=== PATIENT | male | born 1965 | race Caucasian/White ===

== ENCOUNTER → 2023-10-02 | Outpatient (CLI) | payer OTHER | END | disposition home or self-care (01) | LOC: EDUNIT# 08-30 15:30 → SHCH 15:29 | PROVIDERS: ATTEND Internal Medicine | DX: R94.31 Abnormal electrocardiogram [ECG] [EKG] (principal); R06.02 Shortness of breath; R07.9 Chest pain, unspecified | CPT/HCPCS: 93306 ==

== ENCOUNTER → 2023-10-30 | Outpatient (CLI) | payer OTHER ==
[~2023-10-30] MED LIST: IOHEXOL 350 MG/ML 100ML INFUS..BTL IV ONE; metoPROLOL tartRATE 1 MG/ML 5ML VIAL IV ONE
== END | disposition home or self-care (01) ==
LOC: EDUNIT# 09-07 09:00 → RAH 10:38
PROVIDERS: ATTEND Internal Medicine
DX: R07.9 Chest pain, unspecified (principal); R94.31 Abnormal electrocardiogram [ECG] [EKG]; R06.02 Shortness of breath
CPT/HCPCS: 75574; J3490; Q9967

== ENCOUNTER → 2025-01-27 | Outpatient (CLI) | payer OTHER ==
--- NOTE | 2025-01-28 04:08 | HMCIMG ---
EXAM: CR Lumbar Spine, 3 View. CLINICAL HISTORY: CHRONIC PAIN SYNDROME COMPARISON: None provided. FINDINGS: BONES: No acute fracture or aggressive appearing osseous lesion. Posterior lumbar fixation hardware at L4, L5 levels. No hardware-related complications. ALIGNMENT: Alignment is within normal limits. No significant scoliosis. DISCS / DEGENERATIVE CHANGES: Mild to moderate lumbar spondylosis with degenerative disc space narrowing at L5-S1. SOFT TISSUES: The soft tissues are unremarkable. A thoracic spinal cord stimulator device with leads in the thoracic spinal column. IMPRESSION: 1. No acute findings. 2. Posterior lumbar fixation hardware at L4-L5, without complications. 3. Mild to moderate lumbar spondylosis with degenerative disc space narrowing at L5-S1. /[place]
--- NOTE | 2025-01-28 04:08 | HMCIMG ---
EXAM: CR Thoracic Spine, 3 View. CLINICAL HISTORY: CHRONIC PAIN SYNDROME COMPARISON: None provided. FINDINGS: BONES: No acute fracture or aggressive appearing osseous lesion. DISCS / DEGENERATIVE CHANGES: Mild thoracic spondylosis. The disc spaces are preserved. SOFT TISSUES: The paraspinal soft tissue lines are unremarkable. The visualized lungs are clear. MISCELLANEOUS: Visualization of the upper thoracic spine is limited on the lateral view by overlying structures. A thoracic spinal cord stimulator leads seen in situ. IMPRESSION: 1. No acute osseous injury. 2. Mild thoracic spondylosis. 3. Thoracic spinal cord stimulator leads in place. /[place]
== END | disposition home or self-care (01) ==
LOC: RAH 15:23
PROVIDERS: ATTEND Neurological Surgery
DX: T85.840A Pain due to nervous system prosthetic devices, implants and grafts, initial encounter (principal); G89.4 Chronic pain syndrome; M47.814 Spondylosis without myelopathy or radiculopathy, thoracic region; M47.816 Spondylosis without myelopathy or radiculopathy, lumbar region; M48.061 Spinal stenosis, lumbar region without neurogenic claudication; M51.379 Other intervertebral disc degeneration, lumbosacral region without mention of lumbar back pain or lower extremity pain; M48.07 Spinal stenosis, lumbosacral region; Y92.89 Other specified places as the place of occurrence of the external cause
CPT/HCPCS: 72070; 72100